=== PATIENT | male | born 1960 | race Hispanic/Latino ===

== ENCOUNTER → 2021-08-14 | Outpatient (CLI) | payer BC, OTHER ==
[~2021-08-14] MED LIST: ALBUMIN (HUMAN) 25% 200 ML IV SCH
[2021-08-14 09:00] LABS: BASOPHILS % (AUTO) 1.1 % (0.0-5.0); EOSINOPHILS % (AUTO) 1.4 % (0.0-8.0); HEMATOCRIT 30.6 % (42-54); LYMPHOCYTES % (AUTO) 14.1 % (21.0-51.0); MEAN CORPUSCULAR HEMOGLOBIN 34.4 pg (27.0-33.0); MEAN CORPUSCULAR VOLUME 104.1 fL (79-99); MONOCYTES % (AUTO) 9.6 % (3.0-13.0); NEUTROPHILS % (AUTO) 73.2 % (40.0-77.0); PLATELET COUNT (AUTO) 60 K/uL (130-400); RED BLOOD CELL COUNT(AUTO) 2.94 MIL/uL (4.50-6.20); RED CELL DISTRIBUTION WIDTH 14.2 % (11.0-15.5); WHITE BLOOD COUNT (AUTO) 3.6 K/uL (4.8-10.8)
[2021-08-14 09:10] LABS: INR 1.41 (0.85-1.15); PROTHROMBIN TIME 14.9 SEC (9.6-11.6)
[2021-08-14 09:15] LABS: ALBUMIN 2.6 g/dL (3.5-5.0); BILIRUBIN,TOTAL 5.2 mg/dL (0.2-1.0); CREATININE 1.9 mg/dL (0.5-1.5); POTASSIUM 3.9 mmol/L (3.5-5.1)
[2021-08-14 12:50] LABS: ALBUMIN,BODY FLUID 0.6 g/dL
[2021-08-14 13:27] LABS: APPEARANCE BODY FLUID CLEAR (CLEAR); BODY FLUID RBC 100 /cu. mm.; BODY FLUID WBC 40 /cu. mm.; COLOR,BODY FLUID YELLOW (LT YELLOW); SPECIMENTYPE,BODY FLUID ASCITES; TOTAL VOLUME,BODY FLUID 10000 mL
[2021-08-14 13:43] LABS: BF LYMPHOCYTE 14 %; BF MESOTHELIAL 67 %
== END | disposition home or self-care (01) ==
LOC: RAH 08:17
PROVIDERS: ATTEND Internal Medicine Gastroenterology
DX: R18.8 Other ascites (principal); K74.60 Unspecified cirrhosis of liver; R10.9 Unspecified abdominal pain; Z79.01 Long term (current) use of anticoagulants
CPT/HCPCS: 36415; 49083; 80053; 82042; 84157; 85025; 85610; 87071; 87205; 89051; C1729; P9046